=== PATIENT | male | born 1955 | race Caucasian/White ===

== ENCOUNTER 2017-05-01 04:48 | Emergency (ER) | payer SELFPAY ==
[~2017-05-01] VITALS: Ht 182.9 cm; Wt 77.1 kg
[~2017-05-01 04:48] MED LIST: ACET325 PO; ASCO1ER; CETI10 PO; DIAZ5 PO; FLUO20 PO; HYDACE5 PO; HYDACE5325 PO; HYDR1TAB94 PO; IBUP400 PO; IBUP800 PO; LORA1 PO; MECL25 PO; NAPR220; PRED20 PO; TRAZ50 PO; Tylophen500 MG PO; VENL25 PO; VENL75ER PO; Valium5 MG PO
[2017-05-01] MEDS ORDERED: GABA400 PO (06:57)
[2017-05-01] MEDS ORDERED: METCAR500 PO (07:51)
== END 2017-05-01 08:04 | disposition home or self-care (01) ==
LOC: ER 04:48
DX: G89.29 Other chronic pain (principal); M54.5 Low back pain; F32.9 Major depressive disorder, single episode, unspecified; F17.210 Nicotine dependence, cigarettes, uncomplicated; Z88.0 Allergy status to penicillin; Z88.6 Allergy status to analgesic agent; Z79.899 Other long term (current) drug therapy
CPT/HCPCS: 99282

== ENCOUNTER 2019-06-28 04:57 | Emergency (ER) | payer OTHER ==
[~2019-06-28] VITALS: Ht 182.9 cm; Wt 90.7 kg
[~2019-06-28 04:57] MED LIST changes: +GABA400 PO; +METCAR500 PO
== END 2019-06-28 05:38 | disposition home or self-care (01) ==
LOC: ER 04:57
DX: M25.562 Pain in left knee (principal); F32.9 Major depressive disorder, single episode, unspecified; Z88.0 Allergy status to penicillin; Z88.8 Allergy status to other drugs, medicaments and biological substances; Z79.899 Other long term (current) drug therapy; F17.210 Nicotine dependence, cigarettes, uncomplicated; W10.9XXA Fall (on) (from) unspecified stairs and steps, initial encounter
CPT/HCPCS: 73562-LT; 99284-25; A9270-GY